=== PATIENT | male | born 1985 | race Caucasian/White ===

== ENCOUNTER 2016-09-09 14:58 | Emergency (ER) | payer MEDICAID ==
[~2016-09-09] VITALS: Ht 193 cm; Wt 68.2 kg
[2016-09-09 15:12] VITALS: BP 115/65; RESP 20; O2SAT 97
--- NOTE | 2016-09-09 15:14 | ED.REPORT ---
HPI-Ear Pain/Problem/FB Date of Service Sep 09, 2016 ED Provider: History of Present Illness: left ear clogged for 3 weeks, full of wax, tried debrox minimally help, ear wax candle no help. primary care is no one. normally healthy Nursing Notes Stated Complaint: L EAR Chief Complaint: ENT & Mouth Allergies: Coded Allergies: Penicillins (Verified Allergy, Intermediate, unsure, 09/09/16) General Time Seen by MD: 15:14 Chief Complaint Ear problem left Hx Obtained From: Patient Onset Occurred: More than a week ago... (2 months) Past Medical History Past Medical History Denies: Asthma Past Surgical History right hand surgery Smoking History Current Every Day Smoker (2 packs a day for 15 years) Social History Alcohol Use: Denies alcohol use Drug Use: Denies drug use Occupation lives with cousin, no work or school at this time 09/09/2016 Ambulatory Status Independent Review of Systems Basic Review of Systems Eyes: Vision NL, No discharge Respiratory: No shortness of breath, No cough, No wheeze Cardiovascular: No chest pain, No dyspnea on exertion, No orthopnea, No parox noct dyspnea, No palpitations GI: No abdominal pain, No anorexia, No nausea, No vomiting : No dysuria, No frequency Musculoskeletal: No extremity swelling, No extremity pain, Full range of motion , Joints NL Hematologic: No bleeding, No bruising Endocrine: No cold intolerance, No heat intolerance, No weight gain, No weight loss Skin: No bruising, No rash, No itch Allergy / Immune: No allergy Neurologic: NL mental status, No weakness, No numbness Psychiatric: Normal thought content Physical Exam Initial Vital Signs Vital Signs (First) Date Time Temp Pulse Resp B/P Pulse Ox O2 Delivery O2 Flow Rate FiO2 09/09/16 15:12 36.3 103 20 115/65 97 Initial VS: Reviewed, Vital signs normal Head / Eyes: Atraumatic, Normocephalic, PERRL Neck: Supple, Non-tender, Full range of motion Respiratory: Breath sounds normal, Clear to auscultation, No respiratory distress Cardiovascular: Regular rate & rhythm, Heart sounds normal, Intact distal pulses Abdomen / GI: Soft, Non-tender, No guarding, No rebound, No distention Back: No CVA tenderness Lymphatic: No lymphadenopathy Extremities: Vascular intact, Neuro intact, No swelling, No tenderness Skin: Warm, Dry, No cyanosis Neurologic: Alert, Oriented, Nonfocal Psychiatric: Mood/affect normal, Behavior normal, Normal thought content General/Constitutional: Awake, Alert, No acute distress, Well appearing, Well developed left ear has impacted cermun. Right ear has scant amount of wax in the canal but not blocking Head / Eyes: Atraumatic, Normocephalic, PERRL Respiratory / Chest: Atraumatic, Breath sounds NL, Breath sounds = bilat Cardiovascular: Heart rate NL, Regular rhythm, Heart sounds NL Procedures Procedure Notes: ear lavage completely cleared wax from canal on left side. Ear lavage completed by [facility] BLENDER. Patient reports being able to hear Discharge & Departure Primary Impression: Impacted cerumen of left ear Disposition: Home Patient Instructions: Cerumen Impaction (ED) Additional Instructions: The wax has been cleared from your ear. You can use hydrogen peroxide monthly to keep your ears clear. Establish in primary care with the residency clinic. REturn with any concerns. Referrals: [facility] EDSupervising Provider for APC: Santiago Garsia MD copies to: [facility] Maisha Smith Sep 09, 2016 15:14
== END 2016-09-09 16:12 | disposition home or self-care (01) ==
LOC: SED 14:58
DX: H61.22 Impacted cerumen, left ear (principal); F17.200 Nicotine dependence, unspecified, uncomplicated; Z88.0 Allergy status to penicillin

== ENCOUNTER 2016-12-30 12:40 | Emergency (ER) | payer OTHER ==
[~2016-12-30] VITALS: Ht 193 cm; Wt 68.2 kg
[2016-12-30 12:44] VITALS: BP 124/81; PULSE 90; RESP 16; O2SAT 100
--- NOTE | 2016-12-30 12:55 | ED.REPORT ---
HPI-Extremity Problem Lower Date of Service December 30, 2016 ED Provider: History of Present Illness: dislocated right knee in october seen at urgent care, went out again yesterday. works for [email or web address] ex. . did not follow up with ortho at that time. Having sharp pains with twisting motion. no primary care. no medications no pain at present. pain 7/10 when it "goes out" initial injury was lifting heavy box and was turning and had pain in knee immediately Nursing Notes Stated Complaint: DISLOCATED KNEE Chief Complaint: Extremity Trauma Allergies: Coded Allergies: Penicillins (Verified Allergy, Intermediate, unsure, 09/09/16) General Time Seen by MD: 12:54 Chief Complaint Knee injury right Hx Obtained From: Patient Symptom Duration: Waxes and wanes Past Medical History Past Medical History Denies: Asthma, Diabetes mellitus Past Surgical History right hand surgery Smoking History Current Every Day Smoker (1 pack a day for 15 years) Social History Alcohol Use: Denies alcohol use Drug Use: Denies drug use Occupation lives with cousin, works at [employer] 12/30/2016 Ambulatory Status Independent Review of Systems Basic Review of Systems Eyes: Vision NL, No discharge GI: No abdominal pain, No anorexia, No nausea, No vomiting Psychiatric: Normal thought content Physical Exam Initial Vital Signs Vital Signs (First) Date Time Temp Pulse Resp B/P Pulse Ox O2 Delivery O2 Flow Rate FiO2 12/30/16 12:44 36.6 90 16 124/81 100 Room Air Initial VS: Reviewed, Vital signs normal General/Constitutional: Well-developed, Well-nourished Head / Eyes: Atraumatic, Normocephalic, PERRL ENT: Mucous membranes moist, Conjunctiva normal, No scleral icterus Neck: Supple, Non-tender, Full range of motion Respiratory: Breath sounds normal, Clear to auscultation, No respiratory distress Cardiovascular: Regular rate & rhythm, Heart sounds normal, Intact distal pulses Abdomen / GI: Soft, Non-tender, No guarding, No rebound, No distention Back: No CVA tenderness Lymphatic: No lymphadenopathy Upper Extremities: Vascular intact, Neuro intact, No swelling, No tenderness Skin: Warm, Dry, No cyanosis Neurologic: Alert, Oriented, Nonfocal Psychiatric: Mood/affect normal, Behavior normal, Normal thought content Lower Extremity / Pelvis / MS: Atraumatic, Inspection NL, Full range of motion , No swelling, Non-tender, No erythema right knee with full range of motion. no clicking or crepitus noted. no swelling or erthyma noted. patient reports pain is at the medial joint line Ankle / Foot: Atraumatic, Inspection NL, Full range of motion, No swelling General/Constitutional: Awake, Alert, No acute distress, Well appearing, Well developed, Well hydrated Respiratory / Chest: Atraumatic, Breath sounds NL, Breath sounds = bilat, No respiratory distress Cardiovascular: Heart rate NL, Regular rhythm, Heart sounds NL Re-Eval/Medical Decision Med Decision/Clinical Course 31 year old male presents to the ER for episodic right knee pain since October 2016. Initial injury was carrying a heavy box and had a twisting motion and immediate pain. The pain has continued to return for brief episodes. Denies recent injury or fall. Exam is reassuring. No sign of compartment syndrome. Hx is most consistent with mensicus injury. Referred to ortho. Discharge & Departure Impression: Primary Impression: Internal derangement of knee Laterality: right Qualified Code: M23.91 - Unspecified internal derangement of right knee Disposition: Home Patient Instructions: Knee Sprain Exercises (GEN), Operative Knee Arthroscopy ( GEN) Additional Instructions: The mechanism of injury and the location of the pain is concerning for a torn mensicus. Please call Dr. Myers for follow up. If you are not able to get in with Dr. Myers for 3 weeks, please ask if you can be seen by a ortho physician law office assistant. He/she can get things started. A list of exercises is provided. Note for work that you were here today. Referrals: Terry yMers MD EDSupervising Provider for APC: Nino German MD copies to: Terry Myers MD, Sue ARNP December 30, 2016 12:55
[2016-12-30 15:36] VITALS: BP 124/81; PULSE 90; RESP 16; O2SAT 100
== END 2016-12-30 15:36 | disposition home or self-care (01) ==
LOC: SED 12:40
DX: M23.8X1 Other internal derangements of right knee (principal); X50.0XXA Overexertion from strenuous movement or load, initial encounter; Y93.89 Activity, other specified; Y92.89 Other specified places as the place of occurrence of the external cause; Y99.0 Civilian activity done for income or pay; F17.200 Nicotine dependence, unspecified, uncomplicated; Z88.0 Allergy status to penicillin

== ENCOUNTER 2017-01-16 18:38 | Emergency (ER) | payer OTHER ==
[~2017-01-16] VITALS: Ht 193 cm; Wt 68.2 kg
[2017-01-16 18:42] VITALS: BP 145/89; PULSE 127; RESP 20; O2SAT 99
--- NOTE | 2017-01-16 20:09 | ED.REPORT ---
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 This pain is described as "throbbing, burning pain" that ranges from 1/10 to 6/10. The pt has dislocated this knee three times in the past and this episode began when the pt fell at work two weeks ago. The pain has since progressed to the point that he is having difficulty walking or standing. The pt has now begun experiencing similar pain in the left knee. He has been treating this pain with ibuprofen and Excedrin. The pt saw an orthopedic surgeon recently and has an appointment for an MRI within the next few weeks. Nursing Notes Stated Complaint: BILATERAL KNEE PAIN Chief Complaint: Extremity Trauma Nursing Notes Reviewed: Yes Allergies: Coded Allergies: Penicillins (Verified Allergy, Intermediate, unsure, 09/09/16) General Time Seen by MD: 20:08 Chief Complaint Other (Knee pain) Hx Obtained From: Patient Arrived By: Walk-in Sudden in Onset?: No Onset Occurred: More than a week ago... Recent Healthcare: Recent doctor visit Similar Sx Previous: No Past Medical History Past Medical History knee bone spur knee dislocations Past Surgical History right hand surgery Smoking History Current Every Day Smoker Social History Alcohol Use: Denies alcohol use Drug Use: Denies drug use Occupation lives with cousin, works at [employer] 12/30/2016 Ambulatory Status Independent Review of Systems Full Review of Systems Respiratory: Denies: Non-productive cough, Shortness of breath Cardiovascular: Denies: Chest pain GI: Denies: Abdominal pain Musculoskeletal: Reports: Joint pain (bilateral knees, R>L) Skin: Denies Rash Complete sys rev & neg: except as marked. Physical Exam Constitutional: Well-developed, well-nourished. Not diaphoretic. Head: Normocephalic and atraumatic. Mouth/Throat: Oropharynx is clear and moist. No oropharyngeal exudate. Eyes: EOM are normal. Pupils are equal, round, and reactive to light. Neck: Supple, no tracheal deviation. Cardiovascular: Normal rate, regular rhythm. Equal and intact distal pulses throughout. Pulmonary/Chest: Effort normal and breath sounds normal. No respiratory distress. Abdominal: Soft. No distension. There is no tenderness, rebound, or guarding. Bowel sounds present. Musculoskeletal: Moving all extremities. Lower Extremities: Bilateral negative anterior and posterior drawer test. Pain with varus and valgus stress bilaterally. Joints appear stable with no erythema , swelling, or bony tenderness appreciated. Neurological: AOx3. Grossly nonfocal exam. Strength and sensation intact and equal to bilateral upper and lower extremities. Skin: Warm and dry, no rashes or pallor appreciated. Psychiatric: Appropriate mood and affect. Behavior appears normal. Vital Signs Vital Signs Date Time Temp Pulse Resp B/P Pulse Ox O2 Delivery O2 Flow Rate FiO2 01/16/17 18:42 36.6 127 20 145/89 99 Room Air Initial VS: Reviewed Re-Eval/Medical Decision Med Decision/Clinical Course 31-year-old male with chronic knee pain. States he is here today because he would like to get an MRI has one scheduled in a few weeks per his report. The knee is stable here, no swelling, no new injuries. Discharge with careful return precautions, PCP follow-up. Source of Hx: Old records Time of Eval: 20:46 Re-Evaluation/Progress Note: Pt informed of his diagnosis and the plan for discharge with follow up. RTER warnings are given. The pt understands and agrees with the plan. All questions are addressed at this time. Counseled Regarding: Diagnosis, Need for follow-up, When/why to return to ED Discharge & Departure Primary Impression: Knee pain, bilateral Chronicity: acute Qualified Code: M25.561 - Pain in right knee Disposition: Home Discharge Condition All VS Reviewed: Yes Condition: Stable Patient Instructions: Knee Immobilizer (ED), Knee Pain (ED) Additional Instructions: Stand and walk as tolerated and use the knee immobilizer that you have at home. Follow up with orthopedics (your orthopedist or Dr. Negrete) and the [facility] to arrange for an outpatient MRI. Use Tylenol and ibuprofen as directed for pain. Return to the emergency department if you develop any new or worsening symptoms. Referrals: Ezekiel Negrete MD [facility] Scribe Attestation Portions of this note were transcribed by Jersey Keane. I, Dr. Dukes personally performed the history, physical exam and medical decision-making; I reviewed and confirmed the accuracy of the information in the transcribed note. Signed by: Silver eWlch, 01/16/17 and 2112. copies to: Ezekiel Negrete MD; [facility] Ayo Dukes MD Jan 16, 2017 20:09 JERSEY KEANE Jan 16, 2017 20:44
== END 2017-01-16 21:24 | disposition home or self-care (01) ==
LOC: SED 18:38
DX: M25.561 Pain in right knee (principal); F17.200 Nicotine dependence, unspecified, uncomplicated; Z88.0 Allergy status to penicillin